=== PATIENT | male | born 1975 | race Caucasian/White ===

== ENCOUNTER 2018-12-11 13:06 | Emergency (ER) | payer MEDICAID, MEDICARE ==
[~2018-12-11] VITALS: Ht 177.8 cm; Wt 80.4 kg
[2018-12-11 13:47] LABS: BASOPHILS # (AUTO) 0.02 x10^3/uL (0-0.1); BASOPHILS % (AUTO) 0 % (0-1); EOSINOPHILS # (AUTO) 0.09 x10^3/uL (0-0.4); EOSINOPHILS % (AUTO) 1 % (1-7); LYMPHOCYTES # (AUTO) 1.38 x10^3/uL (1-3.4); LYMPHOCYTES % (AUTO) 14 % (22-44); MD NO; MEAN CORPUSCULAR HEMOGLOBIN 32.9 pg (27.5-34.5); MEAN CORPUSCULAR VOLUME 96.9 fL (81-97); MEAN PLATELET VOLUME 7.9 fL (7.4-10.4); MONOCYTES # (AUTO) 0.62 x10^3/uL (0.2-0.8); MONOCYTES % (AUTO) 6 % (2-9); NEUTROPHILS # (AUTO) 8.11 x10^3/uL (1.8-6.8); NEUTROPHILS % (AUTO) 79 % (42-75); PLATELET COUNT 241 x10^3/uL (130-400); RED BLOOD COUNT 4.94 x10^6/uL (4.38-5.82); RED CELL DISTRIBUTION WIDTH 14.8 % (9.4-14.8)
[2018-12-11 13:52] LABS: ALANINE AMINOTRANSFERASE 47 U/L (12-78); ALBUMIN 4.3 g/dL (3.4-5.0); ANION GAP 5 mmol/L (5-15); CALCIUM 9.2 mg/dL (8.5-10.1); CHLORIDE 104 mmol/L (98-107); CREATININE 0.82 mg/dL (0.7-1.3)
[2018-12-11 13:54] LABS: ALKALINE PHOSPHATASE 90 U/L (45-117); BILIRUBIN,TOTAL 1.1 mg/dL (0.2-1.0); TOTAL PROTEIN 7.7 g/dL (6.4-8.2)
--- NOTE | 2018-12-11 14:20 | NUR ---
Assumed care of patient. Patient states that he has been accepted at the [facility] for rehab for EtOH starting on Sunday. They instructed him to come to the ED for medical clearance. Last drink was at 0800. Patient mildly anxious, but not tremulous. Will continue to monitor.
[2018-12-11 14:27] VITALS: BP 166/109
[2018-12-11] MEDS ORDERED: LORazepam 1MG TABLET ONE (15:28)
[2018-12-11] MEDS ORDERED: LORazepam 1MG TABLET PO ONE (15:30)
--- NOTE | 2018-12-11 15:31 | NUR ---
Ativan admin. No other needs.
--- NOTE | 2018-12-11 15:50 | NUR ---
Patient/Caregiver given discharge instructions and they have confirmed that they understand the instructions. Patient ambulatory with steady gait.
== END 2018-12-11 15:51 ==
LOC: ED 15:45
DX: F10.129 Alcohol abuse with intoxication, unspecified (principal)
CPT/HCPCS: 36415; 80053; 85025; 99283

== ENCOUNTER 2019-01-01 22:15 | Emergency (ER) | payer MEDICAID ==
[~2019-01-01] VITALS: Ht 177.8 cm; Wt 81.1 kg
[2019-01-01 22:52] VITALS: BP 133/89
[2019-01-01] MEDS ORDERED: THIAMINE 100MG TABLET PO ONE (23:00)
[2019-01-01] MEDS ORDERED: ONDANSETRON ODT 8 MG PO ONE (23:00)
== END 2019-01-01 22:55 | disposition home or self-care (01) ==
LOC: ED 22:40
DX: F10.220 Alcohol dependence with intoxication, uncomplicated (principal); F17.210 Nicotine dependence, cigarettes, uncomplicated
CPT/HCPCS: 99283; Q0162

== ENCOUNTER 2019-01-16 20:01 | Emergency (ER) | payer MEDICAID ==
[~2019-01-16] VITALS: Ht 177.8 cm; Wt 87.9 kg
--- NOTE | 2019-01-16 20:14 | NUR ---
PT STATES THAT HE WISHES TO DETOX TONIGHT. PT STATES THAT HE HAS BEEN DRINKING ALL DAY WITH LAST DRINK 30 MINUTES AGO, 2 OR 3 TORPEDOS AND 2 OR 3 COORS LIGHT PER PATIENT. REPORTS N/V/D AND BILAT FLANK PAIN. A+OX4, NAD NOTED. PATIENT HAS LUGGAGE AT BEDSIDE, CALL LIGHT WITHIN REACH. AWAITING MD ORDERS.
[2019-01-16] MEDS ORDERED: HTN MEDICATION (20:18)
[2019-01-16] MEDS ORDERED: SERT25TA PO (20:18)
[2019-01-16] MEDS ORDERED: FLUO10CA13 PO (20:22)
--- NOTE | 2019-01-16 20:26 | NUR ---
UA COLLECTED AND SENT TO LAB.
[2019-01-16] MEDS ORDERED: ONDANSETRON ODT 4 MG PO ONE (20:30)
--- NOTE | 2019-01-16 20:54 | NUR ---
REPORT TO JAIRO REYNOSO. AWAITING RESULTS.
--- NOTE | 2019-01-16 21:00 | NUR ---
REPORT RECEIVED FROM JAIRO CAMACHO. ASSUMED CARE OF PT. PT RESTING QUIETLY ON GURNEY, DENIES ANY NEEDS AT THIS TIME.
[2019-01-16 21:08] LABS: ALBUMIN 3.4 g/dL (3.4-5.0); ANION GAP 6 mmol/L (5-15); CALCIUM 8.2 mg/dL (8.5-10.1); CHLORIDE 111 mmol/L (98-107); CREATININE 0.89 mg/dL (0.7-1.3)
[2019-01-16 21:12] LABS: MICROSCOPIC NOT IND
[2019-01-16 21:21] LABS: BASOPHILS # (AUTO) 0.05 x10^3/uL (0-0.1); BASOPHILS % (AUTO) 1 % (0-1); EOSINOPHILS # (AUTO) 0.04 x10^3/uL (0-0.4); EOSINOPHILS % (AUTO) 1 % (1-7); LYMPHOCYTES % (AUTO) 29 % (22-44); MD NO; MEAN CORPUSCULAR HEMOGLOBIN 33.4 pg (27.5-34.5); MEAN CORPUSCULAR HGB CONC 34.5 g/dL (33.2-36.2); MEAN CORPUSCULAR VOLUME 96.9 fL (81-97); MEAN PLATELET VOLUME 7.8 fL (7.4-10.4); MONOCYTES # (AUTO) 0.65 x10^3/uL (0.2-0.8); MONOCYTES % (AUTO) 9 % (2-9); NEUTROPHILS # (AUTO) 4.22 x10^3/uL (1.8-6.8); NEUTROPHILS % (AUTO) 61 % (42-75); PLATELET COUNT 215 x10^3/uL (130-400); RED BLOOD COUNT 4.18 x10^6/uL (4.38-5.82); RED CELL DISTRIBUTION WIDTH 14.3 % (9.4-14.8)
[2019-01-16 21:28] LABS: CULTURE INDICATED? NO
--- NOTE | 2019-01-16 21:45 | NUR ---
PT AGITATED THAT HE IS GOING TO BE DISCHARGED, HAS BEEN MEDICALLY CLEARED FOR A DETOX FACILITY. PT STATES "I CAN'T GO BACK OUT ON THE STREETS, IT WILL BE BAD. I DON'T HAVE ANY MONEY OR ANYWHERE TO STAY." PT ADVISED BY THIS RN AND THE PA THAT THERE ARE NO MEDICAL REASONS TO KEEP HIM HERE. HE WILL BE PROVIDED WITH PRESCRIPTIONS TO ASSIST HIM WITH DETOX, WELL DETOX FACILITIES. PT IS SHOWING NO SIGNS OF DETOX, NONTREMULOUS, HR 74, BP 128/74, SKIN IS WARM AND DRY. PT WALKING WITH A STEADY GAIT. PT OFFERED A TAXI VOUCHER TO THE [facility], HOWEVER DECLINED.
[2019-01-16 21:48] VITALS: BP 118/74
--- NOTE | 2019-01-16 21:49 | NUR ---
Patient/Caregiver given discharge instructions and they have confirmed that they understand the instructions. Patient ambulatory with steady gait.
== END 2019-01-16 21:51 | disposition home or self-care (01) ==
LOC: ED 21:44
DX: F10.220 Alcohol dependence with intoxication, uncomplicated (principal); I10 Essential (primary) hypertension
CPT/HCPCS: 36415; 80048; 81003; 82040; 85025; 99283